=== PATIENT | female | born 1980 | race Caucasian/White ===

== ENCOUNTER 2022-06-02 03:15 | Emergency (ER) | payer SELFPAY ==
[~2022-06-02] VITALS: Ht 175.3 cm; Wt 90.0 kg
[2022-06-02] MEDS ORDERED: IBUP-2029 MT (05:53)
[2022-06-02] MEDS ORDERED: OFLO5DRO4 RIGHT EAR (05:53)
[2022-06-02 06:05] VITALS: BP 115/65
== END 2022-06-02 06:07 | disposition home or self-care (01) ==
LOC: ER 03:27
DX: H60.91 Unspecified otitis externa, right ear (principal)
CPT/HCPCS: 99283